=== PATIENT | female | born 1935 | race African-American/Black ===

== ENCOUNTER → 2016-07-21 | Outpatient (CLI) | payer OTHER ==
[2016-04-24 13:24] VITALS: BP 104/53
[~2016-07-21] MED LIST: HYDR-971 PO; HYDR25TA9 PO; NAPR220T70 PO
--- NOTE | 2016-07-21 09:13 | RAD ---
EXAM: Bilateral lower extremity venous Doppler sonogram. HISTORY: Swelling. TECHNIQUE: Grayscale and color Doppler sonographic imaging of the lower extremity veins with spectral waveform analysis was performed. COMPARISON: None. FINDINGS: There is normal color flow, normal compressibility and there are normal spectral waveforms within the lower extremity veins. The peroneal veins are not well seen due to soft tissue edema. There is a complex fluid collection underlying a lateral right hip surgical incision measuring 11.0 x 4.0 x 4.5 cm. IMPRESSION: 1. No Doppler evidence of lower extremity venous thrombosis, with limited evaluation of the peroneal veins due to calf edema. 2. 11 cm complex fluid collection within the lateral right hip soft tissues underlying a surgical incision. This may be a hematoma or seroma.
== END | disposition home or self-care (01) ==
LOC: US 07:57
PROVIDERS: ATTEND Internal Medicine
DX: M79.89 Other specified soft tissue disorders (principal); M25.551 Pain in right hip; Z96.641 Presence of right artificial hip joint
CPT/HCPCS: 93970

== ENCOUNTER 2018-05-23 16:51 | Emergency (ER) | payer BC, OTHER ==
[~2018-05-23] VITALS: Ht 172.7 cm; Wt 82.1 kg
[~2018-05-23 16:51] MED LIST changes: +HYDR-3164 PO; -HYDR-971 PO
[2018-05-23] MEDS ORDERED: DIPHTH,PERTUSS(ACELL),TET TOX 0.5 ML DISP.SYRIN. VAX IM ONE (18:15)
--- NOTE | 2018-05-23 18:18 | RAD ---
CT HEAD AND MAXILLOFACIAL WO dated 05/23/2018 5:57 PM Indication: Head and face pain.FELL TODAY. PREVIOUS. HEAD AND FACE INJURY pain Comparison: No comparison is available. Technique: Contiguous axial imaging the head was performed from skull base to vertex. In addition, axial imaging the maxillary facial bones obtained with thin cut coronal and sagittal reconstruction. One or more of the following individualized dose reduction techniques were utilized for this examination: 1. Automated exposure control 2. Adjustment of the mA and/or kV according to patient size 3. Use of iterative reconstruction technique Findings: Ventricles and sulci are mildly prominent for age. No midline shift or mass effect. Mild patchy low density in the deep/subcortical periventricular white matter. No hemorrhage or extra-axial collection. Posterior fossa and brainstem unremarkable. No apparent calvarial abnormality. Images of the maxillofacial bones show focal soft tissue swelling over the right orbit. Underlying osseous structures are intact. No displaced facial fracture. Zygomatic arches are intact. Mandible is intact. Nasal bones are intact. Mild mucosal thickening of the bilateral ethmoid air cells. Paranasal sinuses are otherwise clear. Ostiomeatal units are patent. Mastoid air cells and middle ears are clear. No destructive changes or periostitis. Visualized soft tissue structures unremarkable. Spondylotic changes of the upper cervical spine. IMPRESSION HEAD: 1. No evidence of acute intercranial abnormality. 2. Mild chronic small vessel ischemic changes and atrophy. Impression maxillofacial: 1. Soft tissue swelling over the right orbit with no evidence of underlying facial fracture 2. Mild sinus disease. Electronically signed by: Shravan Rao MD (05/23/2018 6:14 PM) [facility]
--- NOTE | 2018-05-23 18:19 | RAD ---
Three-view right shoulder dated 05/23/2018. No comparison available. CLINICAL INDICATION: Pain after fall. FINDINGS: 3 views right shoulder show normal bony alignment. No displaced fracture. Moderate degenerative change of the glenohumeral joint with mild degenerative change of the AC joint. IMPRESSION: No acute radiographic abnormality. Electronically signed by: Shravan Rao MD (05/23/2018 6:15 PM) [facility]
[2018-05-23 18:34] VITALS: BP 144/64
--- NOTE | 2018-05-23 18:37 | PHYS DOC ---
Past Medical History Past Medical History: Hypertension Past Surgical History: Other Additional Past Surgical Histo: Bilateral Hip, bilateral knee Alcohol Use: Rarely Drug Use: None Adult General Chief Complaint Chief Complaint: MECHANICAL FALL HPI HPI Patient is a 82 year old female who presents with pain in her right shoulder and the right side of her face after she fell when she slipped on the snow today getting out of a vehicle. She states that her foot hit the concrete step pitching her forward. She does have considerable swelling around her right eye. She is also had a bloody nose but that has stopped. She denies headache, loss of consciousness or changes in vision. She is not up-to-date on her tetanus booster. Review of Systems Review of Systems Constitutional: Denies fever or chills [] Eyes: Denies change in visual acuity, redness, or eye pain [] HENT: See history of present illness Respiratory: Denies cough or shortness of breath [] Cardiovascular: No additional information not addressed in HPI [] GI: Denies abdominal pain, nausea, vomiting, bloody stools or diarrhea [] : Denies dysuria or hematuria [] Musculoskeletal: See history of present illness Integument: See history of present illness Neurologic: Denies headache, focal weakness or sensory changes [] Endocrine: Denies polyuria or polydipsia [] All other systems were reviewed and found to be within normal limits, except as documented in this note. Current Medications Current Medications Current Medications Medications (Trade) Dose Ordered Sig/Lloyd Start Time Stop Time Status Last Admin Dose Admin Diphtheria/ Tetanus/Acell Pertussis (Boostrix) 0.5 ml ONCE ONCE 05/23/18 18:15 05/23/18 18:16 DC 05/23/18 18:16 0.5 ML Neomycin/ Polymyxin/ Bacitracin (Triple Antibiotic Ointment) 1 pkt STK-MED ONCE 05/23/18 18:48 05/23/18 18:49 DC Allergies Allergies Allergies Coded Allergies Type Severity Reaction Last Updated Verified losartan Allergy Intermediate 04/20/16 Yes aspirin Allergy Unknown 05/23/18 Yes Physical Exam Physical Exam Constitutional: Well developed, well nourished, no acute distress, non-toxic appearance. [] HENT: Normocephalic, bilateral external ears normal, oropharynx moist, no oral exudates, there are abrasions extending from the patient's right cheek to under her nose that are oozing, Eyes: PERRLA, EOMI, conjunctiva normal, no discharge, ecchymosis and edema surrounding the right eye with no entrapment noted, no gross deformity noted. [ ] Neck: Normal range of motion, no tenderness, supple, no stridor. [] Cardiovascular:Heart rate regular rhythm, no murmur [] Lungs & Thorax: Bilateral breath sounds clear to auscultation [] Abdomen: Bowel sounds normal, soft, no tenderness, no masses, no pulsatile masses. [] Skin: Warm, dry, no erythema, no rash. [] Back: No tenderness, no CVA tenderness. [] Extremities: tenderness to right shoulder, no cyanosis, no clubbing, ROM intact , no edema. [] Neurologic: Alert and oriented X 3, normal motor function, normal sensory function, no focal deficits noted. [] Psychologic: Affect normal, judgement normal, mood normal. [] Current Patient Data Vital Signs Vital Signs Date Time Temp Pulse Resp B/P (MAP) Pulse Ox O2 Delivery O2 Flow Rate FiO2 05/23/18 18:34 88 16 98 05/23/18 16:55 98.5 179/85 (116) Room Air 98.5 EKG EKG [] Radiology/Procedures Radiology/Procedures []PATIENT: CRYSTAL SIMON LACCOUNT: [id number]#: [id number] : 1935 LOCATION: ER AGE: 82 SEX: F EXAM STATUS: REG ER ORD. PHYSICIAN: NEAL CRONIN APRN REASON: fell today PROCEDURE: CT HEAD AND MAXILLOFACIAL WO CT HEAD AND MAXILLOFACIAL WO dated 05/23/2018 5:57 PM Indication: Head and face pain.FELL TODAY. PREVIOUS. HEAD AND FACE INJURY pain Comparison: No comparison is available. Technique: Contiguous axial imaging the head was performed from skull base to vertex. In addition, axial imaging the maxillary facial bones obtained with thin cut coronal and sagittal reconstruction. One or more of the following individualized dose reduction techniques were utilized for this examination: 1. Automated exposure control 2. Adjustment of the mA and/or kV according to patient size 3. Use of iterative reconstruction technique Findings: Ventricles and sulci are mildly prominent for age. No midline shift or mass effect. Mild patchy low density in the deep/subcortical periventricular white matter. No hemorrhage or extra-axial collection. Posterior fossa and brainstem unremarkable. No apparent calvarial abnormality. Images of the maxillofacial bones show focal soft tissue swelling over the right orbit. Underlying osseous structures are intact. No displaced facial fracture. Zygomatic arches are intact. Mandible is intact. Nasal bones are intact. Mild mucosal thickening of the bilateral ethmoid air cells. Paranasal sinuses are otherwise clear. Ostiomeatal units are patent. Mastoid air cells and middle ears are clear. No destructive changes or periostitis. Visualized soft tissue structures unremarkable. Spondylotic changes of the upper cervical spine. IMPRESSION HEAD: 1. No evidence of acute intercranial abnormality. 2. Mild chronic small vessel ischemic changes and atrophy. Impression maxillofacial: 1. Soft tissue swelling over the right orbit with no evidence of underlying facial fracture 2. Mild sinus disease. Electronically signed by: Shravan Rao MD (05/23/2018 6:14 PM) [facility] DICTATED and SIGNED BY: SHRAVAN RAO MD DATE: 05/23/181810 PATIENT: CRYSTAL SIMON ACCOUNT: [id number] : 1935 LOCATION: ER AGE: 82 SEX: F EXAM STATUS: REG ER ORD. PHYSICIAN: NEAL CRONIN APRN REASON: fell today PROCEDURE: SHOULDER 2+V RIGHT Three-view right shoulder dated 05/23/2018. No comparison available. CLINICAL INDICATION: Pain after fall. FINDINGS: 3 views right shoulder show normal bony alignment. No displaced fracture. Moderate degenerative change of the glenohumeral joint with mild degenerative change of the AC joint. IMPRESSION: No acute radiographic abnormality. Electronically signed by: Shravan Rao MD (05/23/2018 6:15 PM) [facility] DICTATED and SIGNED BY: SHRAVAN RAO MD DATE: 05/23/181814 Course & Med Decision Making Course & Med Decision Making Pertinent Labs and Imaging studies reviewed. (See chart for details) []The patient's abrasions were cleaned with a small laceration repaired with Dermabond and Steri-Strips. The patient was given Boostrix in the emergency department. Dragon Disclaimer Dragon Disclaimer This electronic medical record was generated, in whole or in part, using a voice recognition dictation system. Departure Departure Impression: Primary Impression: Multiple contusions Additional Impression: Need for tetanus booster Disposition: 01 HOME, SELF-CARE Condition: STABLE Referrals: SHRAVAN ROA MD (PCP) Patient Instructions: Contusions-SportsMed Additional Instructions: Keep your abrasions clean and dry. Follow-up with your primary care provider for recheck in 3 days. If worsening return to the emergency department immediately. You're given a tetanus booster in the emergency department. You may take Tylenol if needed for pain. Problem Qualifiers NEAL CRONIN MACHINE [employer] May 23, 2018 18:37
[2018-05-23] MEDS ORDERED: NEOMY/BACITR/POLYMYXIN OINT PACKET. TP ONE ×2 (18:48→19:00)
== END 2018-05-23 19:01 | disposition home or self-care (01) ==
LOC: ER 16:51
DX: S01.81XA Laceration without foreign body of other part of head, initial encounter (principal); S00.11XA Contusion of right eyelid and periocular area, initial encounter; I10 Essential (primary) hypertension; R04.0 Epistaxis; M25.511 Pain in right shoulder; J32.9 Chronic sinusitis, unspecified; Z88.6 Allergy status to analgesic agent; Z88.8 Allergy status to other drugs, medicaments and biological substances; W00.0XXA Fall on same level due to ice and snow, initial encounter; Y93.89 Activity, other specified; Y92.89 Other specified places as the place of occurrence of the external cause; Y99.8 Other external cause status
CPT/HCPCS: 12011; 70450; 70486; 73030; 90471; 90715; 99284-25

== ENCOUNTER → 2018-07-19 | Outpatient (CLI) | payer BC ==
[~2018-07-19] MED LIST changes: +HYDR-2145 PO; -HYDR25TA9 PO
--- NOTE | 2018-07-20 08:01 | RAD ---
Left lower extremity venous ultrasound, 07/19/2018 : History: Left leg swelling, edema Duplex evaluation including grayscale, color flow and spectral Doppler analysis was performed. The femoral and popliteal veins show no filling defects to suggest DVT. The visualized calf veins are unremarkable. IMPRESSION: There is no sonographic evidence of deep vein thrombosis in the left lower extremity Electronically signed by: Bret Randolph MD (07/20/2018 7:57 AM) [facility]
== END | disposition home or self-care (01) ==
LOC: US 17:43
PROVIDERS: ATTEND Internal Medicine
DX: M79.89 Other specified soft tissue disorders (principal); R60.9 Edema, unspecified
CPT/HCPCS: 93971